=== PATIENT | female | born 1975 | race Caucasian/White ===

== ENCOUNTER 2021-08-23 00:18 | Emergency (ER) | payer SELFPAY ==
--- NOTE | ~2021-08-23 | XR_ITS ---
EXAMINATION: XR tibia fibula RT 2V DATE: 08/23/2021 01:37 INDICATION: Right lower leg pain. TECHNIQUE: 2 views of right tibia and fibula were obtained. COMPARISON: None. FINDINGS: Bone alignment is normal. No fracture. There is mild knee joint osteoarthritis. IMPRESSION: 1. Mild knee joint osteoarthritis. Reviewed, dictated and finalized at location A.
--- NOTE | ~2021-08-23 | XR_ITS ---
EXAMINATION: XR knee RT 3V DATE: 08/23/2021 01:37 INDICATION: Right knee pain. Fall. TECHNIQUE: 3 views of right knee were obtained. COMPARISON: None. FINDINGS: Bone alignment is normal. No fracture. There is mild tricompartmental osteoarthritis charac terized by tiny osteophytes. No joint space narrowing. No knee joint effusion. IMPRESSION: 1. Mild right knee osteoarthritis. Reviewed, dictated and finalized at location A.
--- NOTE | ~2021-08-23 | XR_ITS ---
EXAMINATION: XR knee LT 3V DATE: 08/23/2021 01:37 INDICATION: Left knee pain. Fall. TECHNIQUE: 3 views of left knee were obtained. COMPARISON: None. FINDINGS: Bone alignment is normal. No fracture. There is mild tricompartmental osteoarthritis charac terized by tiny osteophytes. No joint space narrowing. No knee joint effusion. IMPRESSION: 1. Mild left knee osteoarthritis. Reviewed, dictated and finalized at location A.
[2021-08-23 00:25] VITALS: BP 164/100; PULSE 105; RESP 20; TEMP 36.6; O2SAT 97
--- NOTE | 2021-08-23 00:30 | ED.GENADULT ---
HPI - General Adult General Chief complaint: Extremity Injury, Lower Stated complaint: Knee Time Seen by Provider: 08/23/21 00:26 History of Present Illness HPI narrative: This is a 46-year-old female with history of fibromyalgia presenting to ED with with pain to her right rinaldi. Five days ago the patient was carrying laundry and tripped over a concrete block and struck her rinaldi on it. She noticed some bruising that time but she has been able to ambulate since then. She came in today looking for pain control and to get x-rays. Patient has taken Tylenol for pain control. Patient also used meth for pain control several days ago which was effective. The patient does not have a primary care physician. Patient has no other physical complaints this time. She did not injure any other extremities or strike her head when she fell. Related Data Allergies Allergy/AdvReac Type Severity Reaction Status Date / Time Penicillins Allergy Unknown Verified 08/23/21 00:28 Review of Systems Constitutional: Constitutional: Denies fatigue Eyes: Eyes: Denies change in vision ENT: Denies vertigo Cardiovascular: Cardiovascular: Denies rapid heart rate Respiratory: Respiratory: Denies dyspnea Gastrointestinal: Gastrointestinal: Denies abdominal pain Genitourinary: Genitourinary: Denies abnormal vaginal bleeding Musculoskeletal: Musculoskeletal: Denies back pain Integumentary/Breasts: Skin/Breast: Denies rash Neurologic: Denies confusion Psychiatric: Psychiatric: Denies anxiety Endocrine: Endocrine: Denies excessive sweating Hematologic/Lymphatic: Hematologic/Lymphatic: Denies easy bleeding Allergic/Immunologic: Allergic/Immunologic: Denies lip swelling Exam Const: General: healthy appearing Nutritional Appearance: well nourished Orientation/consciousness: patient oriented x3 HENMT: Head: normal to inspection Eyes: Conjunctivae: conjunctivae normal Pupils: Equal, round and reactive pupils present Neck: Neck: normal visual inspection Chest: Chest palpation & inspection: normal inspection of the chest Resp: Effort & Inspection: normal respiratory effort Auscultation: clear to auscultation bilaterally Cardio: Rate: regular rate Rhythm: regular rhythm GI: GI Palp: Yes Soft to palpation, No Tenderness to palpation present (GI) and No Guarding due to palpation present (GI) Back/Spine/Pelvis: Back: no CVA tenderness Skin: General skin exam: normal color Other: Bruising over the proximal portion of the patient's anterior tibia Neuro: General: patient oriented x3 Extrem: Other: patient has bruising to the anterior portion of the proximal tibia on the right side. All compartments of the lower extremity soft. Patient is able to range the knee although there is some pain with range of motion. Patient is able ambulate. Psych: Mental Status: mental status grossly normal Course Vital Signs Vital signs: Vital Signs Temperature 97.9 F 08/23/21 00:25 Pulse Rate 105 H 08/23/21 00:25 Respiratory Rate 20 08/23/21 00:25 Blood Pressure 164/100 H 08/23/21 00:25 Pulse Oximetry 97 08/23/21 00:25 Oxygen Delivery Room Air 08/23/21 00:25 Temperature 97.9 F 08/23/21 00:25 Pulse Rate 105 H 08/23/21 00:25 Respiratory Rate 20 08/23/21 00:25 Blood Pressure 164/100 H 08/23/21 00:25 Pulse Oximetry 97 08/23/21 00:25 Oxygen Delivery Room Air 08/23/21 00:25 Medical Decision Making [facility] Narrative Medical decision making narrative: This is a 46-year-old female presenting ED 5 days after she fell and hit her rinaldi on a concrete block. Patient has some bruising to the rinaldi. However the compartments of her later soft. She has good cap refill and palpable pulses in the foot. An x-ray was ordered which was negative for any acute fracture. Patient was given [place] for pain control. She is requesting additional Motrin. The patient will be discharged with primary care follow-up for Vital
[2021-08-23] MEDS: HYDROcodone/acetaminophen (*CRX) 5-325 MG TABLET 2 TAB PO (00:43)
[2021-08-23] MEDS: IBUPROFEN 400 MG TABLET 800 MG PO (01:34)
[2021-08-23 01:37] VITALS: BP 135/85; PULSE 87; RESP 18; O2SAT 99
== END 2021-08-23 01:48 | disposition home or self-care (01) ==
PROVIDERS: Emergency Provider Emergency Medicine
DX: S80.11XA Contusion of right lower leg, initial encounter (principal); M79.7 Fibromyalgia; W01.198A Fall on same level from slipping, tripping and stumbling with subsequent striking against other object, initial encounter
CPT/HCPCS: 73562; 73590; 99284; A9270